=== PATIENT | female | born 1985 | race Two or more races ===

== ENCOUNTER 2025-01-01 15:02 | Emergency (ER) | payer OTHER ==
[~2025-01-01] VITALS: Ht 165.1 cm; Wt 91.6 kg
[2025-01-01] MEDS ORDERED: LORAZEPAM INJ 2 MG/ML VIAL ONE (15:25)
[2025-01-01] MEDS: LORAZEPAM INJ 2 MG/ML VIAL IV ONE (15:33)
[2025-01-01 15:39] LABS: PLATELET COUNT (AUTO) 276 K/uL (150-450); RED BLOOD CELL COUNT(AUTO) 4.54 MIL/uL (4.0-5.2); RED CELL DISTRIBUTION WIDTH 14.5 % (11.5-15.0); WHITE BLOOD COUNT (AUTO) 8.3 K/uL (4.3-11.0)
[2025-01-01 15:47] LABS: CALCIUM, SERUM 8.9 mg/dL (8.5-10.1); CREATININE 0.8 mg/dL (0.6-1.3); SODIUM SERUM 138 mmol/L (136-145); UREA NITROGEN, BLOOD 21 mg/dL (7-18)
[2025-01-01 15:52] LABS: ALCOHOL, BLOOD < 3 mg/dL (0-10); ASPARTATE AMINOTRANSFERASE 15 U/L (15-37); TOTAL PROTEIN, SERUM 7.6 g/dL (6.4-8.2)
[2025-01-01] MEDS ORDERED: KETOROLAC TROMETHAMINE INJ 30 MG/ML VIAL ONE (16:56)
[2025-01-01] MEDS: KETOROLAC TROMETHAMINE INJ 30 MG/ML VIAL IV ONE (17:08)
[2025-01-01 17:44] VITALS: BP 135/80; TEMP 98.5; O2SAT 100
== END 2025-01-01 17:45 | disposition home or self-care (01) ==
LOC: ER 15:09
DX: F41.0 Panic disorder [episodic paroxysmal anxiety] (principal); R10.2 Pelvic and perineal pain; Z79.899 Other long term (current) drug therapy; Z20.822 Contact with and (suspected) exposure to COVID-19
CPT/HCPCS: 99284; 96374; 96375; 85025; 80048; 80076; 36415; 82962; 84702; 87426; 80143; 80320; J2060; J1885; G0480

== ENCOUNTER 2025-05-17 20:08 | Emergency (ER) | payer OTHER ==
[~2025-05-17] VITALS: Ht 167.6 cm; Wt 83.0 kg
--- NOTE | 2025-05-17 20:35 | NUR ---
registered diet technician at bedside
--- NOTE | 2025-05-17 20:35 | NUR ---
BIBDAUGHTER CC SYNCOPIAL EPISODE, MAHER, SEIZED HANDS
[2025-05-17] MEDS ORDERED: LORAZEPAM INJ 2 MG/ML VIAL ONE (20:38)
--- NOTE | 2025-05-17 20:40 | NUR ---
iv inserted G20 right forearm blood drawn sent to lab
[2025-05-17] MEDS: IV NS 0.9% 500 ML BAG IV ONE (20:54)
[2025-05-17] MEDS: LORAZEPAM INJ 2 MG/ML VIAL IV ONE (20:54)
[2025-05-17 20:58] LABS: PLATELET COUNT (AUTO) 256 K/uL (150-450); RED BLOOD CELL COUNT(AUTO) 4.70 MIL/uL (4.0-5.2); RED CELL DISTRIBUTION WIDTH 14.6 % (11.5-15.0); WHITE BLOOD COUNT (AUTO) 8.1 K/uL (4.3-11.0)
[2025-05-17 21:06] LABS: CALCIUM, SERUM 9.0 mg/dL (8.5-10.1); CREATININE 0.9 mg/dL (0.6-1.3); SODIUM SERUM 140.0 mmol/L (136-145); UREA NITROGEN, BLOOD 11.0 mg/dL (7-18)
[2025-05-17] MEDS ORDERED: POTASSIUM CHLORIDE 20 MEQ TAB.PRT.SR PO ONE (21:40)
[2025-05-17] MEDS: POTASSIUM CHLORIDE 20 MEQ TAB.PRT.SR PO ONE (21:41)
--- NOTE | 2025-05-17 21:41 | NUR ---
iv cannula removed, Patient discharged to home in stable condition. Written and verbal after care instructions given. Patient verbalizes understanding of instruction.
[2025-05-17 21:42] VITALS: BP 120/77; TEMP 98.7; O2SAT 100
== END 2025-05-17 21:42 | disposition home or self-care (01) ==
LOC: ER 20:26
DX: F45.8 Other somatoform disorders (principal); F41.1 Generalized anxiety disorder; E87.6 Hypokalemia; R10.20 Pelvic and perineal pain unspecified side
CPT/HCPCS: 99284; 96374; 96361; 93005; 85025; 80048; 36415; 84702; J2060; J7040